=== PATIENT | female | born 1960 | race Caucasian/White ===

== ENCOUNTER → 2017-06-29 | Outpatient (CLI) | payer BC ==
--- NOTE | 2017-06-29 16:28 | MAMMOGRAPHY REPORT ---
THIS REPORT HAS BEEN AMENDED. BILATERAL DIGITAL SCREENING MAMMOGRAM TOMOSYNTHESIS WITH CAD: 06/29/2017 CLINICAL HISTORY: Routine screening. Patient has no complaints. TECHNIQUE: Breast tomosynthesis in addition to standard 2D mammography was performed. Current study was also evaluated with a Computer Aided Detection (CAD) system. COMPARISON: No prior exams were available for comparison. BREAST COMPOSITION: The tissue of both breasts is heterogeneously dense, which may obscure small mas ses. FINDINGS: There is a small cluster of punctate microcalcifications in the upper outer quadrant of th e right breast, 7 cm distal to the nipple, for which comparison to prior outside mammograms would be useful to assess stability. If the outside exams are unable to be loaded into are PACS system, addit ional spot magnification views are recommended. No other suspicious mass, architectural distortion or cluster of microcalcifications is seen bilatera lly. IMPRESSION: ACR BI-RADS CATEGORY 0: INCOMPLETE EVALUATION: NEED ADDITIONAL IMAGING EVALUATION The small cluster of punctate microcalcifications in the upper outer right breast need additional terri luation. Prior outside images are non-DICOM images and we will attempt to load them into our compute r system. If they are not able to be viewed in a timely manner, additional spot magnification views are recommended. The patient will be called to schedule an appointment. Approximately 10% of breast cancers are not detected with mammography. A negative mammographic report should not delay biopsy if a clinically suggestive mass is present. Yudy Davis M.D. ay/:06/29/2017 15:56:55 Director Of Materials: Mary GALVAN(R)(M)(BD), [facility] letter sent: Need Priors 0 BI-RADS Code: ACR BI-RADS Category 0: Incomplete Evaluation: Need Additional Imaging Evaluation AMENDMENT: 07/06/2017 Yudy Davis M.D. Prior outside mammograms from [facility] dated 08/22/2012, 11/21/2014 and 2015 became available for review. The small cluster of punctate microcalcifications in the upper out er quadrant of the right breast were present and are unchanged in size and appearance on all availabl e prior mammograms dating back to at least 2011 and with 5 years of stability are most likely benign. No other significant interval change is identified. Would recommend routine screening in 1 year. Amended BI-RADS: ACR BI-RADS Category 2: Benign letter sent: Normal 11/01
== END | disposition home or self-care (01) ==
LOC: C.MAMM 14:07
PROVIDERS: ATTEND Advanced Practice Midwife
DX: Z12.31 Encounter for screening mammogram for malignant neoplasm of breast (principal); R92.0 Mammographic microcalcification found on diagnostic imaging of breast

== ENCOUNTER 2020-07-04 08:02 | Observation (INO) ==
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
[~2020-07-04 08:02] MED LIST: CEFAZOLIN 1000MG 1,000 MG/7.5 ML SYR IV SCH; LR 15ML/HR IV SCH
[2020-07-04 08:36] LABS: Basophils # (auto) 0.02 K/uL (0-0.2); Basophils % (auto) 0.4 %; Eosinophils # (auto) 0.27 K/uL (0-0.5); Eosinophils % (auto) 5.7 %; Hematocrit (blood only) 37.9 % (37-47); Hemoglobin 12.5 g/dL (12.0-16.0); Lymphocytes # (auto) 2.22 K/uL (1.2-3.4); Lymphocytes % (auto) 46.9 %; Mean Corpuscular Hemoglobin 28.5 pg (25-34); Mean Corpuscular Volume 86.5 fL (80-100); Mean Platelet Volume 8.8 fL (7.4-10.4); Monocytes # (auto) 0.42 K/uL (0.11-0.59); Monocytes % (auto) 8.9 %; Neutrophils % (auto) 38.1 %; Platelet Count 303 K/uL (130-400); RDW Coefficient of Variation 13.9 % (11.5-14.5); RDW Standard Deviation 44.1 fL (36.4-46.3); Red Blood Count 4.38 M/uL (4.2-5.4); White Blood Count 4.73 K/uL (4.8-10.8)
[2020-07-04] MEDS ORDERED: ePHEDrine sulfate 50 MG/ML AMP IV PRN (08:54)
[2020-07-04] MEDS ORDERED: ONDANSETRON INJ 2 MG/ML 2 ML VIAL IV PRN ×2 (08:54→12:51)
[2020-07-04] MEDS ORDERED: ATROPINE SULFATE 0.1 MG/ML 10ML SYR IV PRN (08:54)
[2020-07-04] MEDS ORDERED: fentaNYL citrate 100 MCG/2 ML VIAL IV PRN (08:54)
[2020-07-04 08:58] LABS: Calcium 9.3 mg/dl (8.5-10.1); Creatinine Clr Calc Pharmacy 55.9 ml/min; Est GFR (African American) 74.1; Est GFR (Non-African American) 63.9
[2020-07-04] MEDS ORDERED: DEXAMETHASONE SOD INJ 4 MG/ML VIAL ONE (09:59)
[2020-07-04] MEDS ORDERED: PROPOFOL IV EMULSION 10 MG/ML 20 ML VIAL IV ONE (09:59)
[2020-07-04] MEDS ORDERED: GLYCOPYRROLATE 0.2 MG/ML VIAL ONE (09:59)
[2020-07-04] MEDS ORDERED: MIDAZOLAM HCL 1 MG/ML 2ML VIAL ONE (09:59)
[2020-07-04] MEDS ORDERED: NEOSTIGMINE METHYLSULFATE 5 MG/5 ML SYR ONE (09:59)
[2020-07-04] MEDS ORDERED: LIDOCAINE HCL 2% 2 ML VIAL/AMP(20MG/ML) INFIL ONE (09:59)
[2020-07-04] MEDS ORDERED: ONDANSETRON INJ 2 MG/ML 2 ML VIAL ONE (09:59)
[2020-07-04] MEDS ORDERED: fentaNYL citrate 100 MCG/2 ML VIAL ONE ×2 (09:59→11:47)
[2020-07-04] MEDS ORDERED: ROCURONIUM BROMIDE 10 MG/ML 5 ML VIAL IV ONE (09:59)
[2020-07-04] MEDS ORDERED: LIDOCAINE/EPINE 2% 1:100,000 20ML ONE (10:26)
--- NOTE | 2020-07-04 10:43 | History & Physical Bridge Note ---
Date of Service July 04, 2020 History & Physical Bridge Note I have examined the patient, reviewed the History & Physical and in the interval since the performance of the History & Physical I have noted the following changes of clinical significance: no changes noted
[2020-07-04] MEDS ORDERED: PHENYLEPHRINE HCL 10 MG/ML VIAL ONE (11:23)
--- NOTE | 2020-07-04 12:51 | Operative Report ---
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 The incision line was injected with 2% Xylocaine with 1 20,000 strength epinephrine. This was 2 fingerbreadths below the angle of the mandible pop following the skin creases. Incision was made using a 15 blade and carried down through the skin and subcutaneous layer and then the platysma layer using the 15 blade. Hemostasis was controlled using the Bovie. Blunt sharp dissection was performed using the harmonic scalpel to free up the gland inferiorly from the digastric tendon and then anteriorly from the mylohyoid muscle and posteriorly from the tail the parotid. Posteriorly the facial vein was encountered clamped divided and tied using silk ties. Branch of the facial artery entering the gland was also clamped tied after dividing it. Superiorly the lingual nerve was identified and preserved and dissected free from the gland by clamping the branch into the submandibular gland and then dividing and tying this branch. Anteriorly the Elsa's duct was grossly distended this was clamped under the mylohyoid, divided and then tied. The cavity was irrigated clean and further hemostasis was controlled using the Bovie. [place] drain was placed in the depth of the wound. Incision was closed with interrupted 4-0 Vicryl sutures on the platysma layer, interrupted 3-0 chromic sutures on the subcutaneous layer, and interrupted 4-0 nylon sutures on the skin layer. The drain was sewn in place with a 3-0 nylon suture. Light pressure dressing was placed. She tolerated procedure well and was taken recovery area in satisfactory condition. I attest to the content of the Intraoperative Record and any orders documented therein. Any exceptions are noted below.
[2020-07-04] MEDS ORDERED: CEFAZOLIN 1000MG 1,000 MG/7.5 ML SYR IV ONE ×2 (12:53→16:30)
--- NOTE | 2020-07-04 14:37 | Anesthesiology Progress Note ---
Date of Service July 04, 2020 Anesthesia Post Procedure Vital Signs Vital Signs: Temp Pulse Pulse Resp BP BP Pulse Ox 07/04/20 14:13 98.6 F 68 18 128/77 97 07/04/20 13:40 99.0 F 72 16 136/78 97 07/04/20 13:15 71 14 140/77 97 07/04/20 13:05 97.5 F L 73 14 136/82 97 07/04/20 12:55 80 14 130/83 96 07/04/20 12:46 97.3 F L 83 14 141/85 H 98 07/04/20 08:46 98.8 F 88 18 130/74 96 Pain Intensity Right Neck: Pain Intensity: 5 Transfer of Care Handoff Completed per policy Notes Mental Status: alert / awake / arousable and participated in evaluation Patient Amnestic to Procedure: Yes Nausea / Vomiting: adequately controlled Pain: adequately controlled Airway Patency, RR, SpO2: stable & adequate BP & HR: stable & adequate Hydration State: stable & adequate Anesthetic Complications: no major complications apparent and Pt Satisfied with anesthetic care
[2020-07-04] MEDS: LACTATED RINGER'S 1,000 ML IV SCH (14:45)
[2020-07-04] MEDS: OXYCODONE/ACETAMINOPHEN 5mg/325mg TAB PO PRN ×3 (14:51→23:32)
[2020-07-05] MEDS: LACTATED RINGER'S 1,000 ML IV SCH (03:40)
[2020-07-05] MEDS: OXYCODONE/ACETAMINOPHEN 5mg/325mg TAB PO PRN (06:10)
--- NOTE | 2020-07-05 10:07 | Discharge Summary ---
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 with palpable stone formation by intraoral palpation failed medical management and desires excision of the right submandibular gland Admission Exam (Per Admitting) Constitutional WD/WN, vitals as above Eyes PERRL, conjunctivae normal, anicteric sclerae ENMT Mouth: + oropharynx abnormality (Palpable firm stone under the right side of the tongue) Respiratory normal respiratory effort, lungs clear to auscultation Cardiovascular RRR, no murmur, no edema Discharge Data Procedures Performed Operation Date: 07/04/20 09:35 Actual Procedures p Right Excision Submandibular Gland(Right) - Nati Smith MD Hospital Course (1) Sialoadenitis of submandibular gland: Underwent excision in OR Tuesday, no complication, recovered well, drain removed Tuesday, discharged to home
== END 2020-07-05 11:14 | disposition home or self-care (01) ==
LOC: ASU 08:02 → 3W 08:02